=== PATIENT | male | born 1945 | race Caucasian/White ===

== ENCOUNTER → 2017-04-17 | Outpatient (CLI) | payer MEDICARE, OTHER ==
[~2017-04-17] MED LIST: ASPI-621 PO; ASPI-650 PO; ATOR10TA PO; DOCU-131 PO; DULO60CA7 PO; GABA-826 PO; HYDR-3237 PO; HYDR-3245 PO; IBUP200T64 PO; LOSA1TAB2 PO; MV-M1TAB29 PO; ROSU10TA PO; TRAM50TA2 PO; ZOLP10TA5 PO; [UNRECOGNIZED DRUG - OTHER] IM
[2017-04-17 09:45] LABS: ASPARTATE AMINO TRANSFERASE 22 U/L (15-37); BLOOD UREA NITROGEN 18 mg/dL (7-18)
== END | disposition home or self-care (01) ==
LOC: STAR 08:03
PROVIDERS: ATTEND Surgery
DX: Z01.818 Encounter for other preprocedural examination (principal); K40.90 Unilateral inguinal hernia, without obstruction or gangrene, not specified as recurrent; K42.9 Umbilical hernia without obstruction or gangrene
CPT/HCPCS: 36415; 80053; 93005

== ENCOUNTER 2017-04-22 06:25 | Day surgery (SDC) | payer MEDICARE, OTHER ==
[~2017-04-22] VITALS: Ht 177.8 cm; Wt 103.0 kg
[2017-04-22] MEDS ORDERED: LACTATED RINGERS 1,000 ML IV SCH (06:43)
[2017-04-22 06:58] VITALS: BP 145/90
[2017-04-22] MEDS ORDERED: MIDAZOLAM 1 MG/ML, 2ML ONE (08:35)
[2017-04-22] MEDS ORDERED: FENTANYL PF 250 MCG/5ML ONE (08:35)
[2017-04-22] MEDS ORDERED: ROCURONIUM 10 MG/ML,10ML ONE (08:36)
[2017-04-22] MEDS ORDERED: BUPIVACAINE/PF 0.5% ONE (08:45)
[2017-04-22] MEDS ORDERED: EPINEPHRINE 1 MG/ML, 1ML ONE (08:45)
[2017-04-22] MEDS ORDERED: CEFAZOLIN 1,000 MG ONE (08:57)
[2017-04-22] MEDS ORDERED: PROPOFOL 10 MG/ML, 20ML ONE (09:26)
[2017-04-22] MEDS ORDERED: DEXAMETHASONE 4 MG/ML, 1ML ONE (09:26)
[2017-04-22] MEDS ORDERED: ONDANSETRON 2MG/ML, 2ML ONE (09:26)
[2017-04-22] MEDS ORDERED: SUCCINYLCHOLINE 20 MG/ML, 10ML ONE (09:26)
[2017-04-22] MEDS ORDERED: PROMETHAZINE 25 MG/ML, 1ML IV PRN (09:30)
[2017-04-22] MEDS ORDERED: ALBUTEROL/IPRATROPIUM 2.5MG/0.5MG, 3 ML NPPB PRN (09:30)
[2017-04-22] MEDS ORDERED: FENTANYL PF 100 MCG/2ML IV PRN (09:30)
[2017-04-22] MEDS ORDERED: OXYcodone 5 MG/5 ML ORAL.SOL UDC PO PRN ×2 (09:30→10:30)
[2017-04-22] MEDS ORDERED: EPHEDRINE 50 MG/ML, 1ML IVPush PRN (09:30)
[2017-04-22] MEDS ORDERED: ONDANSETRON 2MG/ML, 2ML IVPush PRN ×2 (09:30→10:30)
[2017-04-22] MEDS ORDERED: BUPIVACAINE/PF-EPI 0.5% 1:200K INFIL ONE (09:30)
[2017-04-22] MEDS ORDERED: MIDAZOLAM 1 MG/ML, 2ML IV PRN (09:30)
[2017-04-22] MEDS ORDERED: LORazepam 2 MG/ML, 1ML IVPush PRN (09:30)
[2017-04-22] MEDS ORDERED: LABETALOL 5MG/ML, 20ML IV PRN (09:30)
[2017-04-22] MEDS ORDERED: HYDROmorphone 1 MG/ML, 1ML IV PRN (09:30)
[2017-04-22] MEDS ORDERED: FENTANYL PF 100 MCG/2ML ONE (10:06)
[2017-04-22] MEDS ORDERED: HYDROmorphone 2 MG/ML, 1ML IVPush PRN (10:30)
[2017-04-22] MEDS ORDERED: IBUPROFEN 800 MG TABLET PO ONE (12:30)
== END 2017-04-22 12:45 ==
LOC: OUT 06:25
PROVIDERS: ATTEND Surgery
DX: K40.90 Unilateral inguinal hernia, without obstruction or gangrene, not specified as recurrent (principal); K42.9 Umbilical hernia without obstruction or gangrene; D17.6 Benign lipomatous neoplasm of spermatic cord; I10 Essential (primary) hypertension; Z88.1 Allergy status to other antibiotic agents; Z98.890 Other specified postprocedural states
CPT/HCPCS: 49650; 49652; C1781; J0171; J0330; J0690; J1100; J2250; J2405; J2704; J3010; J3490; J7120